=== PATIENT | female | born 1980 | race Two or more races ===

== ENCOUNTER 2021-10-08 15:51 | Emergency (ER) | payer MEDICAID ==
[~2021-10-08] VITALS: Ht 167.6 cm; Wt 65.0 kg
[2021-10-08 16:55] LABS: BASOPHILS % 0.5 % (0.0-2.0); EOSINOPHILS % 0.3 % (0.0-5.0); HEMATOCRIT. 36.7 % (36.0-48.0); HEMOGLOBIN. 12.3 g/dL (12.0-16.0); LYMPHOCYTES % 15.6 % (20.0-50.0); MEAN CORPUSCULAR HEMOGLOBIN 29.3 pg (28.0-32.0); MEAN CORPUSCULAR VOLUME 87.3 fL (81.0-99.0); MEAN PLATELET VOLUME 8.2 fl (7.4-10.4); MONOCYTES % 5.2 % (2.0-8.0); NEUTROPHILS % 78.4 % (40.0-76.0); PLATELET 327 x1000/uL (130-400); RED CELL DISTRIBUTION WIDTH 14.4 % (11.6-14.6)
[2021-10-08 17:02] LABS: CHLORIDE 104 mEq/L (98-107)
[2021-10-08 17:07] LABS: HCG SCREEN NEGATIVE
[2021-10-08 17:17] LABS: ETHANOL BLOOD < 10 mg/dL
[2021-10-08 19:30] LABS: *AMPHETAMINES SCREEN URINE NEGATIVE (NEGATIVE); *BARBITURATES SCREEN URINE NEGATIVE (NEGATIVE); *BENZODIAZEPINES SCREEN URINE NEGATIVE (NEGATIVE); *COCAINE SCREEN URINE NEGATIVE (NEGATIVE); CANNABINOID URINE SCREEN NEGATIVE (NEGATIVE); METHADONE URINE SCREEN NEGATIVE (NEGATIVE); OPIATES URINE SCREEN NEGATIVE (NEGATIVE); PHENCYCLIDINE URINE SCREEN NEGATIVE (NEGATIVE)
[2021-10-09] MEDS: SERTRALINE HCL 50MG TABLET PO SCH (11:16)
[2021-10-10] MEDS: SERTRALINE HCL 50MG TABLET PO SCH (08:42)
[2021-10-10 12:43] VITALS: BP 111/69
== END 2021-10-10 13:11 | disposition short-term general hospital (02) ==
LOC: ER 15:51
DX: R45.851 Suicidal ideations (principal); F32.9 Major depressive disorder, single episode, unspecified; F43.10 Post-traumatic stress disorder, unspecified; Z87.440 Personal history of urinary (tract) infections; F41.9 Anxiety disorder, unspecified; Z20.822 Contact with and (suspected) exposure to COVID-19
CPT/HCPCS: 36415; 80053; 80305; 80307; 80320; 80329; 84443; 84703; 85025; 99285; C9803; U0003; U0005; G0480

== ENCOUNTER 2023-09-17 12:37 | Emergency (ER) | payer BC, MEDICAID ==
[~2023-09-17] VITALS: Ht 149.9 cm; Wt 65.8 kg
[2023-09-17 12:48] VITALS: O2SAT 100
[2023-09-17] MEDS ORDERED: AMOX1TAB16 MT (13:26)
[2023-09-17] MEDS: BACITRACIN ZINC OINT UDPKT TOP ONE (13:30)
[2023-09-17 14:34] VITALS: BP 134/78; PULSE 75; RESP 16; TEMP 98.2
== END 2023-09-17 14:46 | disposition home or self-care (01) ==
LOC: ER 12:37
DX: S61.451A Open bite of right hand, initial encounter (principal); F41.9 Anxiety disorder, unspecified; Z87.440 Personal history of urinary (tract) infections; X58.XXXA Exposure to other specified factors, initial encounter; Y93.89 Activity, other specified; Y92.89 Other specified places as the place of occurrence of the external cause; Y99.8 Other external cause status
CPT/HCPCS: 99283